=== PATIENT | female | born 1970 | race American Indian/Alaskan Native ===

== ENCOUNTER 2018-03-25 09:11 | Emergency (ER) | payer MEDICAID, MEDICARE, OTHER ==
[2018-03-25 09:11] VITALS: BMI 34.7
[2018-03-25 09:46] VITALS: RESP 18; TEMP 97.6
--- NOTE | 2018-03-25 10:04 | ED PDOC ---
Arrival/HPI - General Chief Complaint: ENT Problem Time Seen by Provider: 03/25/18 09:59 Historian: Patient - History of Present Illness Narrative History of Present Illness (Text): 03/25/18 10:01 48yr old female presents today with a 7 day history of decreased hearing in right ear. pt states she has been sick with URI symptoms for 7 days. pt states she completed zpack today. pt states she is still having muffled hearing. pt denies sore throat. denies fever/chills. pt denies cp or sob. no vomiting/ diarrhea. pt denies ear pain. no other complaints. Time/Duration: 1 week Past Medical History - Provider Review Nursing Documentation Reviewed: Yes - Travel History Have you recently traveled outside [place] w/in the past 3 mons?: No - Infectious Disease Hx of Infectious Diseases: None - Tetanus Immunization Tetanus Immunization: Unknown - Past Medical History Past Medical History: No Previous - Cardiac Hx Cardiac Disorders: No - Pulmonary Hx Respiratory Disorders: No - Neurological Hx Neurological Disorder: No - HEENT Hx HEENT Disorder: No - Renal Hx Renal Disorder: No - Endocrine/Metabolic Hx Endocrine Disorders: No - Hematological/Oncological Hx Blood Disorders: No - Integumentary Hx Dermatological Disorder: No - Musculoskeletal/Rheumatological Hx Musculoskeletal Disorders: No - Gastrointestinal Hx Gastrointestinal Disorders: No - Genitourinary/Gynecological Hx Genitourinary Disorders: No - Psychiatric Hx Psychophysiologic Disorder: Yes Hx Anxiety: Yes Hx Depression: Yes Hx Substance Use: No - Past Surgical History Past Surgical History: No Previous - Surgical History Hx Eye Surgery: Yes (RIGHT EYE FROM MUGGING) Hx Musculoskeletal Surgery: Yes (FX JAW) - Anesthesia Hx Anesthesia: Yes Hx Anesthesia Reactions: No Hx Malignant Hyperthermia: No - Suicidal Assessment Feels Threatened In Home Enviroment: No Family/Social History - Physician Review Nursing Documentation Reviewed: Yes Family/Social History: Unknown Family HX Smoking Status: Never Smoked Hx Alcohol Use: No Hx Substance Use: No Hx Substance Use Treatment: No Allergies/Home Meds Allergies/Adverse Reactions: Allergies Penicillins Allergy (Verified 08/25/16 18:28) ANAPHYLAXIS Home Medications: Home Meds Medication Instructions Recorded Confirmed DULoxetine [Cymbalta] 30 mg PO DAILY 06/05/16 08/25/16 ARIPiprazole [Abilify] 08/25/16 Oxycodone HCl/Acetaminophen 08/25/16 [Percocet 10-325 mg Tablet] Review of Systems - Review of Systems Constitutional: absent: Fatigue, Fevers Eyes: absent: Vision Changes, Photophobia, Eye Pain ENT: Hearing Changes, Sinus Congestion. absent: Sore Throat, Rhinorrhea Respiratory: absent: SOB, Cough Cardiovascular: absent: Chest Pain, Palpitations Gastrointestinal: absent: Abdominal Pain, Stool Changes, Vomiting Genitourinary Female: absent: Dysuria, Frequency, Hematuria Musculoskeletal: absent: Arthralgias, Back Pain, Neck Pain Skin: absent: Rash, Pruritis Neurological: absent: Headache, Dizziness Psychiatric: absent: Anxiety, Depression Physical Exam Vital Signs Reviewed: Yes Vital Signs Temp Pulse Resp BP Pulse Ox 03/25/18 09:11 97.6 F 63 18 114/77 99 Temperature: Afebrile Blood Pressure: Normal Pulse: Regular Respiratory Rate: Normal Appearance: Positive for: Well-Appearing, Non-Toxic, Comfortable Pain Distress: None Mental Status: Positive for: Alert and Oriented X 3 - Systems Exam Head: Present: Atraumatic Pupils: Present: PERRL Extroacular Muscles: Present: EOMI Conjunctiva: Present: Normal Ears: Present: Normal Canal. No: NORMAL TM (Tm dull. no erythema. no fluid), Erythema, TM Bulging, Fluid, TM Perf Mouth: Present: Moist Mucous Membranes, Normal Lips, Normal Tounge. No: Drooling, Trismus Pharnyx: Present: Normal. No: ERYTHEMA, EXUDATE, TONSILS ENLARGED, Peritonsilar Swelling, Uvular Deviation Nose (External): Present: Atraumatic Nose (Internal): Present: Normal Inspection Neck: Present: Normal Range of Motion, Trachea Midline. No: Lymphadenopathy Respiratory/Chest: Present: Clear to Auscultation, Good Air Exchange. No: Respiratory Distress, Accessory Muscle Use Cardiovascular: Present: Regular Rate and Rhythm, Normal S1, S2. No: Murmurs Neurological: Present: GCS=15, Speech Normal Skin: Present: Warm, Dry, Normal Color. No: Rashes Psychiatric: Present: Alert, Oriented x 3 Medical Decision Making ED Course and Treatment: 03/25/18 10:06 48yr old female with decreased hearing in right ear x 1 week. pt non toxic well appearing; no distress. stable vitals. advised patient to take Flonase and Claritin. Patient was advised to follow-up with the ENT specialist within the next 2 days. Patient was advised me to return if symptoms worsen persist or if new concerning symptoms develop Patient verbalizes understanding of discharge instructions and need for immediate followup. all aspects of this case were discussed the attending of record. Impression: Hearing changes, URI Tylenol every 4 hours as needed for pain/fever reduction Flonase 2 sprays each nostril once daily Claritin one tablet daily Follow-up with the ENT specialist within the next 2 days Follow-up primary care physician within the next 2 days Return if symptoms worsen persist or if new concerning symptoms develop Disposition/Present on Arrival - Present on Arrival Any Indicators Present on Arrival: No History of DVT/PE: No History of Uncontrolled Diabetes: No Urinary Catheter: No History of Decub. Ulcer: No History Surgical Site Infection Following: None - Disposition Have Diagnosis and Disposition been Completed?: Yes Diagnosis: Upper respiratory infection, Hearing problem of right ear Disposition: HOME/ ROUTINE Disposition Time: 10:14 Patient Plan: Discharge Condition: GOOD Discharge Instructions (ExitCare): Viral Upper Respiratory Infection, Adult (DC ) Additional Instructions: Tylenol every 4 hours as needed for pain/fever reduction Flonase 2 sprays each nostril once daily Claritin one tablet daily Follow-up with the ENT specialist within the next 2 days Follow-up primary care physician within the next 2 days Return if symptoms worsen persist or if new concerning symptoms develop Prescriptions: Fluticasone Nasal [Flonase] 2 spr NS DAILY #1 spr Loratadine [Claritin] 10 mg PO DAILY #30 tab Referrals: Fara Elizalde MD [Staff Provider] - Follow up with primary Stephen Huerta DO [Staff Provider] - Follow up with primary Forms: [employer] (Mongolian), WORK NOTE
[2018-03-25 10:29] VITALS: BP 117/70; PULSE 73; O2SAT 100
== END 2018-03-25 10:28 | disposition home or self-care (01) ==
LOC: ED 09:11
DX: J06.9 Acute upper respiratory infection, unspecified (principal); H91.91 Unspecified hearing loss, right ear